=== PATIENT | male | born 1970 | race Caucasian/White ===

== ENCOUNTER 2019-12-27 17:47 | Emergency (ER) | payer MEDICAID, SELFPAY ==
[2019-12-27 18:06] LABS: Add Urine Microscopic? NO; Appearance Urine Clear (Clear); Bilirubin Urine Negative (Negative); Blood Urine Negative (Negative); Color Urine Yellow (Yellow); Glucose Urine UA Negative (Negative); Ketones Urine Negative (Negative); Leukocyte Esterase Ur Negative LEU/UL (Negative); Nitrate Urine Negative (Negative); Protein Urine Negative (Negative); Specific Grav Ur 1.015 (1.010-1.020); Urobilinogen Urine 0.2 mg/dL (0.2-1.0)
[2019-12-27 18:15] VITALS: BP 132/77; PULSE 106; RESP 18; TEMP 37.4; O2SAT 97
--- NOTE | 2019-12-27 18:24 | ED.BACK ---
HPI - Back Pain/Injury General Chief Complaint: Back Pain/Injury Stated Complaint: back pain, headache Source: patient Mode of arrival: ambulatory Limitations: no limitations History of Present Illness HPI Narrative: 49 y.o. male c/o fever, chills, lateral low back pain (4-5/10) and pulsatile temporal headache which started at noon today, about 6 hours ago. Temp measured at 100.6 . No hx of back injury, pain, numbness or weakness of his lower extremities. There is nothing which makes it better or worse. Similar set of symptoms 2 - 3 weeks ago which lasted for 2 - 3 days, with mild but residual low back pain. He was not evaluated by a medical provider at the time. 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 Quality: dull Radiation: none Associated symptoms: denies other symptoms Related Data Allergies Allergy/AdvReac Type Severity Reaction Status Date / Time No Known Allergies Allergy Verified 12/27/19 18:31 Review of Systems Constitutional: Constitutional: Denies body ache(s) and Reports headache(s) (hx of frequent headaches which are occipital, unlike today's symptoms. ) Eyes: Eyes: Reports change in vision ENT: Denies otalgia, Denies facial pain, Reports nasal discharge, Denies neck pain and Denies sinus pain Cardiovascular: Cardiovascular: Denies chest pain, Denies pedal edema and Denies leg edema Respiratory: Respiratory: Denies cough and Denies dyspnea Gastrointestinal: Gastrointestinal: Denies abdominal pain and Denies change in stool character Genitourinary: Genitourinary: Denies dysuria Musculoskeletal: Musculoskeletal: Denies no additional musculoskeletal complaints, Denies myalgias and Denies arthralgias Integumentary/Breasts: Skin/Breast: Denies rash Neurologic: Denies Sensory deficit (Neuro), Denies paresthesias and Denies weakness Hematologic/Lymphatic: Hematologic/Lymphatic: Denies easy bruising PMFSH Past Medical History Medical History (Updated 12/28/19 @ 00:00 by Tess Daemon) Frequent headaches Family History Family History (Updated 12/27/19 @ 18:35 by Kush Rodrigues MD) Father , suicide when patient was a child No problems noted. Mother Hypertension Exam Const: General: cooperative and no acute distress Other: Sits, stands, walks without splinting or apparent pain. HENMT: Head: normal to inspection and no scalp tenderness Ears: TM's normal bilaterally Face and sinus: sinuses nontender Mouth: Yes Normal oral and palatal mucosa present Eyes: General: appearance normal, both eyes and all related structures Neck: Neck: normal visual inspection and no lymphadenopathy Resp: Effort & Inspection: normal respiratory effort, able to speak in complete sentences and symmetric chest movement Auscultation: clear to auscultation bilaterally Cardio: Jugular venous distension: no JVD Rhythm: regular rhythm GI: Inspection: normal to inspection GI Palp: Yes Soft to palpation, Yes Tenderness to palpation present (GI) (tender McBurney's point to deep palpation. No rebound or guarding. ) and No Splenomegaly present : General: No CVA tenderness Back/Spine/Pelvis: Back: No erythema and No warmth Thoracic/Lumbar Spine: thoracic and lumbar spine normal to inspection, No Thoracic/lumbar spine scar(s), No bend over test abnormal, No pain with thoraco-lumbar ROM, No thoraco-lumbar ROM limited and other (Pt localizes pain and has minor tenderness lateral back) Back/spine/pelvis image: 1. area of pain and tenderness 2. area of pain and tenderness Skin: General skin exam: normal color Neuro: General: oriented to person Cranial nerves: Yes CN's II-XII intact bilaterally Cognition (Neuro): normal cognition Speech: normal speech Gait exam (Neuro): Normal gait present Course Course Emergency Course: Discussed lab results with patient. Back pain likely muscle strain. No fever in E.D. I suspect headache is related to his chronic headache syndrome, triggered by fever. Pt. advised to see
[2019-12-27 18:43] LABS: Basophils Absolute Auto 0.02 K/mm3 (0.00-0.10); Basophils Percent Auto 0.2 % (0.0-1.0); Eosinophils Absolute Auto 0.04 K/mm3 (0.02-0.50); Eosinophils Percent Auto 0.5 % (1.0-6.0); Hematocrit 38.9 % (40.0-54.0); Hemoglobin 13.6 g/dL (14.0-18.0); Immature Granulocyte Absolute 0.01 K/mm3 (0.00-0.00); Immature Granulocyte Percent A 0.1 % (0.0-0.0); Lymphocytes Absolute Auto 0.75 K/mm3 (1.10-4.50); Lymphocytes Percent Auto 8.7 % (18.0-42.0); Mean Corpuscular Volume 85.7 fL (78.0-102.0); Mean Platelet Volume 9.9 fl (8.7-11.0); Neutrophils Absolute Auto 7.2 K/mm3 (1.7-7.2); Neutrophils Percent Auto 83.5 % (50.0-70.0); Platelet Count Result 204 K/mm3 (150-420); Red Blood Count 4.54 M/mm3 (4.70-6.10); Red Cell Distribution Width 12.4 % (11.6-14.4); White Blood Count 8.6 K/mm3 (4.8-10.8)
[2019-12-27 18:54] LABS: CRP 0.4 mg/dL (0.0-0.9)
[2019-12-27 19:00] LABS: Alanine Aminotransferase 23 U/L (16-63); Albumin Level 3.9 g/dL (3.4-5.0); Alkaline Phosphatase 91 U/L (46-116); Anion Gap 12.6 mmol/L (7-16); Aspartate Amino Transferase 25 U/L (15-37); Bilirubin,Total 0.4 mg/dL (0.00-1.00); Blood Urea Nitrogen 11 mg/dL (7-18); Calcium 8.8 mg/dL (8.5-10.1); Carbon Dioxide 27 mmol/L (21-32); Chloride 104 mmol/L (98-108); Estimated Glomerular Filt Rate > 60; Glucose 104 mg/dL (70-99); Osmolality Calculated 289 mOsm/kg (285-295); Potassium 3.6 mmol/L (3.5-5.1); Sodium 140 mmol/L (136-145); Total Protein 7.5 g/dL (6.4-8.2)
[2019-12-27 19:57] VITALS: BP 121/79; PULSE 95; O2SAT 98
== END 2019-12-27 20:04 | disposition home or self-care (01) ==
LOC: CHSED 17:50
PROVIDERS: Emergency Provider Family Medicine
DX: S39.012A Strain of muscle, fascia and tendon of lower back, initial encounter (principal); R51 Headache
CPT/HCPCS: 36415; 80053; 81003; 85025; 86140; 99283